=== PATIENT | male | born 1960 | race Caucasian/White ===

== ENCOUNTER → 2018-11-12 | Outpatient (CLI) | payer MEDICARE, OTHER ==
[~2018-11-12] MED LIST: ASPI-496 PO; CEFAZOLIN 1,000 MG ONE; DEXAMETHASONE 4 MG/ML, 1ML ONE; DLPA PO; FENTANYL PF 250 MCG/5ML ONE; GING500C PO; GLYCOPYRROLATE 0.2MG/1ML, 5ML ONE; HYDR-3245 PO; HYDR25TA6 PO; LOSA50TA7 PO; MIDAZOLAM 1 MG/ML, 2ML ONE; MULT-658 PO; NEOSTIGMINE 1 MG/ML, 10ML ONE; PROPOFOL 10 MG/ML, 20ML ONE; ROCURONIUM 10MG/ML,5ML ONE; TEST100V2 IM; TEST200V3 IM
[2018-11-12 10:27] LABS: BASOPHILS # (AUTO) 0.03 x10^3/uL (0-0.1); BASOPHILS % (AUTO) 0 % (0-1); EOSINOPHILS # (AUTO) 0.25 x10^3/uL (0-0.4); EOSINOPHILS % (AUTO) 4 % (1-7); LYMPHOCYTES # (AUTO) 1.89 x10^3/uL (1-3.4); LYMPHOCYTES % (AUTO) 27 % (22-44); MD NO; MEAN CORPUSCULAR HGB CONC 34.3 g/dL (33.2-36.2); MEAN CORPUSCULAR VOLUME 87.3 fL (81-97); MEAN PLATELET VOLUME 7.8 fL (7.4-10.4); MONOCYTES # (AUTO) 0.54 x10^3/uL (0.2-0.8); MONOCYTES % (AUTO) 8 % (2-9); NEUTROPHILS # (AUTO) 4.24 x10^3/uL (1.8-6.8); NEUTROPHILS % (AUTO) 61 % (42-75); PLATELET COUNT 264 x10^3/uL (130-400); RED BLOOD COUNT 5.06 x10^6/uL (4.38-5.82); RED CELL DISTRIBUTION WIDTH 12.9 % (9.4-14.8)
[2018-11-12 10:27] LABS: MICROSCOPIC NOT IND
[2018-11-12 10:30] LABS: CULTURE INDICATED? NO
[2018-11-12 10:58] LABS: ALANINE AMINOTRANSFERASE 45 U/L (12-78); ALBUMIN 3.9 g/dL (3.4-5.0); ANION GAP 6 mmol/L (5-15); CALCIUM 8.7 mg/dL (8.5-10.1); CHLORIDE 105 mmol/L (98-107)
[2018-11-12 11:01] LABS: ALKALINE PHOSPHATASE 92 U/L (45-117); BILIRUBIN,TOTAL 0.9 mg/dL (0.2-1.0); CREATININE 1.15 mg/dL (0.7-1.3); TOTAL PROTEIN 7.5 g/dL (6.4-8.2)
== END | disposition home or self-care (01) ==
LOC: STAR 09:00
PROVIDERS: ATTEND Orthopaedic Surgery
DX: Z01.818 Encounter for other preprocedural examination (principal); Z96.642 Presence of left artificial hip joint
CPT/HCPCS: 36415; 80053; 81003; 85025; 87081; 87147; 93005

== ENCOUNTER → 2019-12-29 | Outpatient (CLI) | payer MEDICARE ==
[~2019-12-29] MED LIST changes: -CEFAZOLIN 1,000 MG ONE; -DEXAMETHASONE 4 MG/ML, 1ML ONE; -FENTANYL PF 250 MCG/5ML ONE; -GLYCOPYRROLATE 0.2MG/1ML, 5ML ONE; +IBUP-1223 PO; +LOSA50TA14 PO; -LOSA50TA7 PO; -MIDAZOLAM 1 MG/ML, 2ML ONE; -NEOSTIGMINE 1 MG/ML, 10ML ONE; -PROPOFOL 10 MG/ML, 20ML ONE; -ROCURONIUM 10MG/ML,5ML ONE
[2019-12-29 10:25] LABS: BASOPHILS # (AUTO) 0.01 x10^3/uL (0-0.1); BASOPHILS % (AUTO) 0 % (0-1); EOSINOPHILS # (AUTO) 0.31 x10^3/uL (0-0.4); EOSINOPHILS % (AUTO) 4 % (1-7); LYMPHOCYTES # (AUTO) 1.48 x10^3/uL (1-3.4); LYMPHOCYTES % (AUTO) 18 % (22-44); MD NO; MEAN CORPUSCULAR HEMOGLOBIN 30.6 pg (27.5-34.5); MEAN CORPUSCULAR HGB CONC 33.9 g/dL (33.2-36.2); MEAN PLATELET VOLUME 7.7 fL (7.4-10.4); MONOCYTES # (AUTO) 0.56 x10^3/uL (0.2-0.8); MONOCYTES % (AUTO) 7 % (2-9); NEUTROPHILS # (AUTO) 5.76 x10^3/uL (1.8-6.8); NEUTROPHILS % (AUTO) 71 % (42-75); PLATELET COUNT 269 x10^3/uL (130-400); RED BLOOD COUNT 5.05 x10^6/uL (4.38-5.82); RED CELL DISTRIBUTION WIDTH 13.3 % (9.4-14.8)
[2019-12-29 10:49] LABS: ANION GAP 8 mmol/L (5-15); CALCIUM 9.2 mg/dL (8.5-10.1); CHLORIDE 106 mmol/L (98-107)
[2019-12-29 10:52] LABS: ALANINE AMINOTRANSFERASE 53 U/L (12-78); ALKALINE PHOSPHATASE 64 U/L (45-117); BILIRUBIN,TOTAL 1.4 mg/dL (0.2-1.0); CREATININE 1.21 mg/dL (0.7-1.3); TOTAL PROTEIN 7.3 g/dL (6.4-8.2)
== END | disposition home or self-care (01) ==
LOC: STAR 09:00
PROVIDERS: ATTEND Orthopaedic Surgery
DX: Z01.818 Encounter for other preprocedural examination (principal); M17.9 Osteoarthritis of knee, unspecified; M25.561 Pain in right knee; M16.12 Unilateral primary osteoarthritis, left hip; M25.552 Pain in left hip; Z96.642 Presence of left artificial hip joint; Z96.649 Presence of unspecified artificial hip joint; M16.10 Unilateral primary osteoarthritis, unspecified hip; I11.9 Hypertensive heart disease without heart failure
CPT/HCPCS: 36415; 80053; 85025; 87081; 93005

== ENCOUNTER 2020-01-10 07:32 | Observation (INO) | payer MEDICARE ==
[~2020-01-10] VITALS: Ht 185.4 cm; Wt 105.0 kg
[2020-01-10] MEDS ORDERED: LACTATED RINGERS 1,000 ML IV SCH (07:47)
[2020-01-10] MEDS ORDERED: MIDAZOLAM 1 MG/ML, 2ML ONE (07:53)
[2020-01-10] MEDS ORDERED: FENTANYL PF 100 MCG/2ML ONE ×3 (07:53→10:22)
[2020-01-10] MEDS ORDERED: GABAPENTIN 300 MG CAPSULE PO ONE (08:30)
[2020-01-10] MEDS ORDERED: ACETAMINOPHEN 500 MG TABLET PO ONE (08:30)
[2020-01-10] MEDS ORDERED: FENTANYL PF 100 MCG/2ML IV PRN ×2 (08:30→11:30)
[2020-01-10] MEDS ORDERED: SCOPOLAMINE 1MG PATCH TD SCH (08:30)
[2020-01-10] MEDS ORDERED: PROMETHAZINE 25 MG/ML, 1ML IV PRN (08:30)
[2020-01-10] MEDS ORDERED: MEPERIDINE/PF 25MG/ML,1ML IVPush PRN (08:30)
[2020-01-10] MEDS ORDERED: KETOROLAC 60 MG/2 ML ONE (08:46)
[2020-01-10] MEDS ORDERED: TRANEXAMIC ACID 100 MG/ML, 10ML ONE (08:46)
[2020-01-10] MEDS ORDERED: EPINEPHRINE 1 MG/ML, 1ML ONE (08:47)
[2020-01-10] MEDS ORDERED: ROPIvacaine/PF 0.2%, 20 ML ONE (08:47)
[2020-01-10] MEDS ORDERED: SODIUM CHLORIDE 0.9% 50 ML ONE (08:47)
[2020-01-10] MEDS ORDERED: BUPIVACAINE LIPOSOME/PF 10ML INFIL ONE (08:52)
[2020-01-10] MEDS ORDERED: PROPOFOL 10 MG/ML, 20ML ONE (09:39)
[2020-01-10] MEDS ORDERED: ONDANSETRON 2MG/ML, 2ML ONE (09:39)
[2020-01-10] MEDS ORDERED: CEFAZOLIN 1,000 MG ONE (09:39)
[2020-01-10] MEDS ORDERED: DEXAMETHASONE 4 MG/ML, 1ML ONE (09:39)
[2020-01-10] MEDS ORDERED: hydrALAzine 20 MG/ML, 1ML ONE (09:44)
[2020-01-10] MEDS ORDERED: OXYcodone 5 MG/5 ML ORAL.SOL UDC ONE (11:21)
[2020-01-10] MEDS ORDERED: HYDROmorphone 1 MG/ML, 1ML INJ ONE ×2 (11:21→11:43)
[2020-01-10] MEDS: HYDROmorphone 2 MG/ML, 1ML IVPush PRN ×4 (11:25→11:58)
[2020-01-10] MEDS ORDERED: SENNA/DOCUSATE TABLET PO PRN (11:30)
[2020-01-10] MEDS ORDERED: hydrALAzine 20 MG/ML, 1ML IV PRN (11:30)
[2020-01-10] MEDS ORDERED: ONDANSETRON ODT 8 MG PO PRN (11:30)
[2020-01-10] MEDS ORDERED: HYDROmorphone 2 MG/ML, 1ML IVPush PRN (11:30)
[2020-01-10] MEDS ORDERED: ALUMINUM/MAG/SIMETHICONE 30 ML UDC PO PRN (11:30)
[2020-01-10] MEDS ORDERED: PROMETHAZINE 12.5 MG SUPP PR PRN ×2 (11:30)
[2020-01-10] MEDS ORDERED: PROMETHAZINE 25 MG SUPP PR PRN (11:30)
[2020-01-10] MEDS ORDERED: LABETALOL 5MG/ML, 20ML IV PRN (11:30)
[2020-01-10] MEDS ORDERED: POLYETHYLENE GLYCOL 17 GM PACKET PO PRN (11:30)
[2020-01-10] MEDS ORDERED: ZOLPIDEM 5MG TABLET PO PRN (11:30)
[2020-01-10] MEDS ORDERED: LORazepam 2 MG/ML, 1ML IVPush PRN (11:30)
[2020-01-10] MEDS ORDERED: ONDANSETRON 4 MG TABLET PO PRN (11:30)
[2020-01-10] MEDS ORDERED: ONDANSETRON 2MG/ML, 2ML IV PRN ×2 (11:30→13:00)
[2020-01-10] MEDS ORDERED: PSYLLIUM PACKET PO PRN (11:30)
[2020-01-10] MEDS ORDERED: OXYcodone 5 MG/5 ML ORAL.SOL UDC PO PRN (11:30)
[2020-01-10] MEDS: KETOROLAC 30 MG/1 ML IV SCH ×3 (11:30→23:47)
[2020-01-10] MEDS ORDERED: MAGNESIUM HYDROXIDE 8%, 30ML UDC PO PRN (11:30)
[2020-01-10] MEDS ORDERED: BISACODYL 10 MG SUPP PR PRN (11:30)
[2020-01-10] MEDS ORDERED: LORazepam 2 MG/ML, 1ML ONE (11:35)
[2020-01-10] MEDS ORDERED: TRANEXAMIC ACID 1,000 MG in SODIUM CHLORIDE 0.9% 100 ML IVPB ONE (11:45)
[2020-01-10] MEDS ORDERED: MEPERIDINE/PF 25MG/ML,1ML ONE (11:50)
[2020-01-10 12:59] VITALS: BP 135/94
[2020-01-10] MEDS ORDERED: DIPHENHYDRAMINE 25 MG CAPSULE PO PRN (13:00)
[2020-01-10] MEDS ORDERED: HYDROmorphone 1 MG/ML, 1ML INJ IVPush PRN (13:00)
[2020-01-10] MEDS ORDERED: DEXAMETHASONE 4 MG/ML, 1ML IVPush SCH (13:00)
[2020-01-10] MEDS ORDERED: DIAZEPAM 5 MG TABLET PO PRN (13:00)
[2020-01-10] MEDS: ACETAMINOPHEN 500 MG TABLET PO SCH ×2 (13:39→20:23)
[2020-01-10] MEDS: CALCIUM/VITAMIN D3 250-125 TABLET PO SCH ×2 (13:39→20:23)
[2020-01-10] MEDS: D5%-0.45% NACL 1,000 ML IV SCH ×2 (14:30→19:58)
[2020-01-10] MEDS: OXYcodone IR 5MG TABLET PO PRN ×2 (16:04→21:48)
[2020-01-10 16:25] VITALS: BP 119/72
[2020-01-10] MEDS: ASPIRIN 81 MG TABLET EC PO SCH ×2 (17:46→20:23)
[2020-01-10] MEDS: FERROUS SULFATE 325 MG TABLET PO SCH (17:46)
[2020-01-10] MEDS: CEFAZOLIN PMX 2GM/50ML 50 ML IVPB SCH (18:12)
[2020-01-10 19:18] VITALS: BP 122/65
[2020-01-10] MEDS: DOCUSATE 100 MG CAPSULE PO SCH (20:23)
[2020-01-11 01:57] VITALS: BP 145/79
[2020-01-11] MEDS: CEFAZOLIN PMX 2GM/50ML 50 ML IVPB SCH (02:32)
[2020-01-11] MEDS: ACETAMINOPHEN 500 MG TABLET PO SCH ×4 (02:33→20:34)
[2020-01-11] MEDS: OXYcodone IR 5MG TABLET PO PRN ×6 (02:39→23:37)
[2020-01-11] MEDS: KETOROLAC 30 MG/1 ML IV SCH ×3 (06:28→17:11)
[2020-01-11 07:48] VITALS: BP 138/68
[2020-01-11] MEDS: ASPIRIN 81 MG TABLET EC PO SCH ×2 (07:57→19:34)
[2020-01-11] MEDS: ASCORBIC ACID 500 MG TABLET PO SCH (07:58)
[2020-01-11] MEDS: DOCUSATE 100 MG CAPSULE PO SCH ×2 (07:59→19:34)
[2020-01-11] MEDS: CALCIUM/VITAMIN D3 250-125 TABLET PO SCH ×3 (07:59→17:11)
[2020-01-11] MEDS: MULTIVITAMINS/MINERALS TABLET PO SCH (07:59)
[2020-01-11] MEDS: FERROUS SULFATE 325 MG TABLET PO SCH ×2 (07:59→17:11)
[2020-01-11 13:11] VITALS: BP 159/62
[2020-01-11 19:19] VITALS: BP 154/83
[2020-01-11] MEDS: D5%-0.45% NACL 1,000 ML IV SCH (20:35)
[2020-01-11] MEDS ORDERED: LOSARTAN 50MG TABLET PO SCH (21:00)
[2020-01-11] MEDS ORDERED: HYDROCHLOROTHIAZIDE 25 MG TABLET PO SCH (21:00)
[2020-01-12 00:52] VITALS: BP 159/76
[2020-01-12] MEDS: ACETAMINOPHEN 500 MG TABLET PO SCH ×3 (02:30→15:26)
[2020-01-12] MEDS: OXYcodone IR 5MG TABLET PO PRN ×5 (03:30→16:13)
[2020-01-12 07:54] VITALS: BP 191/96
[2020-01-12 08:02] VITALS: BP 135/67
[2020-01-12] MEDS: CALCIUM/VITAMIN D3 250-125 TABLET PO SCH ×2 (08:27→11:52)
[2020-01-12] MEDS: ASPIRIN 81 MG TABLET EC PO SCH (08:27)
[2020-01-12] MEDS: DOCUSATE 100 MG CAPSULE PO SCH (08:27)
[2020-01-12] MEDS: MULTIVITAMINS/MINERALS TABLET PO SCH (08:27)
[2020-01-12] MEDS: ASCORBIC ACID 500 MG TABLET PO SCH (08:27)
[2020-01-12] MEDS: FERROUS SULFATE 325 MG TABLET PO SCH (08:28)
[2020-01-12] MEDS ORDERED: HYDROCHLOROTHIAZIDE 25 MG TABLET PO SCH (09:00)
[2020-01-12 09:54] VITALS: BP 158/71
[2020-01-12] MEDS: D5%-0.45% NACL 1,000 ML IV SCH (09:56)
[2020-01-12] MEDS ORDERED: KETOROLAC 30 MG/1 ML IVPush ONE (11:00)
[2020-01-12 14:16] VITALS: BP 150/89
== END 2020-01-12 17:05 | disposition home or self-care (01) ==
LOC: OUT 07:32 → ORIP 11:09 → 4NE 12:53 → 5SO 16:07 → 4NW 01-11 19:12 → DCLOUNGE 01-12 16:55
PROVIDERS: ADMIT Orthopaedic Surgery; ATTEND Orthopaedic Surgery
DX: M17.11 Unilateral primary osteoarthritis, right knee (principal); F11.90 Opioid use, unspecified, uncomplicated; I10 Essential (primary) hypertension; Z79.899 Other long term (current) drug therapy; Z86.73 Personal history of transient ischemic attack (TIA), and cerebral infarction without residual deficits
CPT/HCPCS: 27447; 36415; 73560; 85014; 85018; 96365; 96366; 96375; 96376; 97110; 97116; 97162; 97166; 97530; 97535; C1713; C1776; G0378; J0171; J0360; J0690; J1100; J1170; J1885; J2060; J2175; J2250; J2405; J2704; J2795; J3010

== ENCOUNTER → 2020-04-28 | Outpatient (CLI) | payer MEDICARE | END | disposition home or self-care (01) | LOC: RAD 09:05 | PROVIDERS: ATTEND Family Medicine | DX: I82.812 Embolism and thrombosis of superficial veins of left lower extremity (principal) ==